=== PATIENT | female | born 1950 | race Caucasian/White ===

== ENCOUNTER 2021-09-28 08:50 | Emergency (ER) | payer MEDICARE, BC, SELFPAY ==
--- NOTE | ~2021-09-28 | CT_ITS ---
EXAMINATION: CT brain wo con DATE: 09/28/2021 10:02 INDICATION: Right-sided headache. Visual changes. Patient on blood thinners. TECHNIQUE: Computed tomography (CT) of the head was performed without intravenous contrast. The dose- length product was 605.33 mGy-cm. Automated exposure control and iterative reconstruction technique w ere employed. COMPARISON: None FINDINGS: No acute intracranial hemorrhage, infarction, mass or mass effect. No ventriculomegaly or m idline shift. There are scattered mild periventricular and subcortical white matter changes, most lik mouna related to small vessel ischemic disease (microangiopathy). There is intracranial atherosclerosis . Basilar cisterns are patent. There is mild mastoids are pneumatized. No depressed skull fractures. Mucosal thickening of the ethmoid sinuses. IMPRESSION: 1. No acute intracranial abnormality. Reviewed, dictated and finalized at location B.
[2021-09-28 08:57] VITALS: BP 144/63; PULSE 65; RESP 16; TEMP 35.8; O2SAT 97
--- NOTE | 2021-09-28 09:52 | ED.HA ---
HPI - Headache General Chief Complaint: Headache Stated Complaint: headache Time Seen by Provider: 09/28/21 09:20 Source: patient Mode of arrival: ambulatory Limitations: no limitations History of Present Illness HPI Narrative: This is a 71 year old female that presents to the ER for headache present since this morning. Reports she does have history of headaches, but this one is worse than usual for her. Reports a right sided headache that is a dull ache. Reports she started to feel like the pain was in her eye and looked in the mirror and noted bleeding in her eye. She has not taken anything for her headache. She did take her chronic medications this morning. Reports blurry vision in the right eye. She takes Eliquis daily for Afib. Denies fever, stiff neck, vomiting, numbness or weakness. Related Data Allergies Allergy/AdvReac Type Severity Reaction Status Date / Time codeine Allergy Unknown Verified 09/28/21 09:01 Sulfa (Sulfonamide Allergy Unknown Verified 09/28/21 09:00 Antibiotics) Review of Systems Review of Systems: CONSTITUTIONAL: Denies fever EYES: Reports redness. Denies visual changes GASTROINTESTINAL: Denies vomiting NEUROLOGIC: Reports headache. Denies numbness, or weakness. All systems reviewed & are unremarkable except as noted in HPI and below PMFSH Past Medical History Medical History (Updated 09/28/21 @ 12:41 by Prema Chawla PA-C) History of atrial fibrillation History of hypertension Social History Social History (Updated 09/28/21 @ 10:00 by Prema Chawla PA-C) Substance use: never Exam Narrative: GENERAL: Well-appearing, well-nourished, and in no acute distress. HEAD: Normocephalic, atraumatic. EYES: PERRLA and EOMI. Large subconjunctival hemorrhage of the right eye covering all of the sclera. Visual acuity right eye 20/30, left eye 20/25. Pressure right eye 18, left eye 16. Small (4mm) corneal abrasion noted medial to the pupil in the right eye ENT: Nares clear, no rhinorrhea or epistaxis. Mucous membranes moist. Oropharynx without tonsillar hypertrophy exudate or other lesions. Bilateral TMs pearly gutierrez non-bulging NECK: Supple. No adenopathy or masses. CHEST: Clear to auscultation. No respiratory distress. No wheezes rales or rhonchi HEART: Regular rate and rhythm. No murmur heard. Normal peripheral pulses. ABDOMEN: Soft, nontender, nondistended, normal active bowel sounds. EXTREMITIES: Normal range of motion. No edema. SKIN: Warm, dry, no rash. NEURO: No focal deficits. Alert and oriented x3. PSYCH: Normal mood and affect Course Consultations Consultation #1: Spoke with Dr. Alcala about patient and workup who will follow up in clinic on Friday. Will start patient on Moxifloxacin drops and artificial tears as needed for discomfort Date: 09/28/21 Time: 12:00 Vital Signs Vital signs: Vital Signs Temperature 96.4 F L 09/28/21 08:57 Pulse Rate 65 09/28/21 08:57 Respiratory Rate 16 09/28/21 08:57 Blood Pressure 144/63 H 09/28/21 08:57 Pulse Oximetry 97 09/28/21 08:57 Temperature 96.4 F L 09/28/21 08:57 Pulse Rate 60 09/28/21 11:28 Respiratory Rate 19 09/28/21 11:28 Blood Pressure 134/69 09/28/21 11:28 Pulse Oximetry 99 09/28/21 11:28 MDM - Headache MDM Narrative Medical decision making narrative: Patient presents to the emergency department for a headache today. She is afebrile and nontoxic-appearing. Her vitals are stable. She is neurologically intact. Reports relief of headache with Tylenol. Laboratory evaluation is without concerning findings. CT scan of the brain is without acute intracranial abnormality. Patient also reporting a subconjunctival hemorrhage today. No recent injury or trauma. It is a large subconjunctival hemorrhage, likely because she is on Eliquis for A. fib. No concerning visual changes. Pressures in her eyes are normal. She does appear to have a small corneal abrasion on exam. Spoke with ELZA Riddle ophthal
--- NOTE | 2021-09-28 09:56 | PC.NURSE ---
pt to CT at this time.
[2021-09-28 10:25] LABS: Basophils Percent Auto 0.3 % (0.2-1.2); Eosinophils Absolute Auto 0.3 K/mm3 (0-0.3); Eosinophils Percent Auto 2.6 % (0-4.4); Hematocrit 36.9 % (37.0-47.0); Immature Granulocyte Absolute 0.04 K/mm3 (0.00-0.031); Immature Granulocyte Percent A 0.4 % (0-0.5); Lymphocytes Absolute Auto 1.57 K/mm3 (0.9-3.2); Lymphocytes Percent Auto 15.5 % (18.3-44.2); Mean Corpuscular HGB Conc 32.5 g/dl (32-36); Mean Corpuscular Hemoglobin 29.4 pg (26-34); Mean Corpuscular Volume 90.4 fl (80-100); Mean Platelet Volume 10.2 fl (7.4-10.4); Monocytes Absolute Auto 0.5 K/mm3 (0.1-0.6); Monocytes Percent Auto 5.2 % (2.6-8.5); Neutrophils Absolute Auto 7.7 K/mm3 (1.3-6.7); Platelet Count Result 245 k/mm3 (150-375); Red Blood Count 4.08 M/mm3 (4.2-5.4); Red Cell Distribution Width 12.8 % (11.5-14.5); White Blood Count 10.1 K/mm3 (4.5-10.0)
[2021-09-28 10:35] LABS: Anion Gap 5 mmol/L (8-16); Blood Urea Nitrogen 18 mg/dL (7-17); Calcium 8.9 mg/dL (8.4-10.2); Carbon Dioxide 30 mmol/L (22-30); Chloride 101 mmol/L (98-107); Estimated CRCL calculation 56 ml/min; Estimated Glomerular Filt Rate > 60; Glucose 120 mg/dL (65-110); INR 1.2; Potassium 4.4 mmol/L (3.4-5.0); Prothrombin Time 14.6 Seconds (11.1-14.7); Sodium 136 mmol/L (137-145)
[2021-09-28 10:36] LABS: Partial Thromboplastin Time 31.5 SECONDS (22.3-36.8)
[2021-09-28 11:28] VITALS: BP 134/69; PULSE 60; RESP 19; O2SAT 99
== END 2021-09-28 12:58 | disposition home or self-care (01) ==
PROVIDERS: Physician Assistant; Emergency Provider Emergency Medicine; PCP Registered Nurse
DX: R51.9 Headache, unspecified (principal); H11.31 Conjunctival hemorrhage, right eye; I48.91 Unspecified atrial fibrillation; I10 Essential (primary) hypertension; Z79.01 Long term (current) use of anticoagulants
CPT/HCPCS: 36415; 70450; 80048; 85025; 85610; 85730; 96365; 99284; A9270; J0131

== ENCOUNTER 2024-08-29 09:35 | Emergency (ER) | payer MEDICARE, BC, SELFPAY ==
--- NOTE | ~2024-08-29 | XR_ITS ---
CHEST RADIOGRAPH, PA AND LATERAL CLINICAL HISTORY: cough, wheezing, shortness of breath . COMPARISON: None available TECHNIQUE: PA and lateral views of the chest. FINDINGS The cardiomediastinal silhouette is unremarkable. Elevation of the right hemidiaphragm with adjacent compressive atelectasis. Peribronchial thickening is also noted. Remainder of the lungs are clear. IMPRESSION: Peribronchial thickening, without focal infiltrate or effusion. Reviewed, dictated and finalized at location [facility]. [facility]
--- OUTSIDE RECORDS SUMMARY | 2024-08-29 09:37 | XMS_ITS | Clinical Summary ---
Author Organization [facility] Address [address] [place] [address] Care Team Providers Care Sql Ssrs Developer Name Role Phone Modesta Kraft Primary Care Provider [phone] Allergies Active Allergy Reactions Criticality Noted Date Comments Codeine Nausea and Vomiting 04/05/2021 Sulfa Antibiotics Unknown 04/05/2021 Pt cant remember. Medications albuterol sulfate HFA 108 (90 Base) MCG/ACT inhalerIndication s:Acute cough,Bronchitis Inhale 2 puffs into the lungs every 6 (six) hours as needed for Wheezing. 8.5 g 2 09/30/19 24 Active spironolactone (ALDACTONE) 25 MG tabletIndications :Primary hypertension TAKE 1 TABLET(25 MG) BY MOUTH DAILY 90 tablet 3 12/10/19 24 Active amLODIPine (NORVASC) 5 MG tabletIndications :Primary hypertension TAKE 1 TABLET(5 MG) BY MOUTH DAILY 90 tablet 3 12/10/19 24 Active metoprolol succinate ER (TOPROL-XL) 100 MG 24 hr tabletIndications :Primary hypertension,Paro xysmal atrial fibrillation (CMS/HCC HHS/HCC) TAKE 1 TABLET(100 MG) BY MOUTH DAILY 90 tablet 3 12/10/19 24 Active glimepiride (AMARYL) 1 MG tabletIndications :Type 2 diabetes mellitus with diabetic polyneuropathy, without long-term current use of insulin ([facility] HHS/HCC) TAKE 1 TABLET(1 MG) BY MOUTH EVERY MORNING BEFORE BREAKFAST 90 tablet 3 12/10/19 24 Active gabapentin (NEURONTIN) 100 MG capsuleIndication s:Diabetic peripheral neuropathy ([facility] HHS/HCC) take 2 capsules by mouth daily 180 capsule 3 12/10/19 24 Active atorvastatin (LIPITOR) 20 MG tabletIndications :Mixed hyperlipidemia TAKE 1 TABLET(20 MG) BY MOUTH EVERY NIGHT AT BEDTIME 90 tablet 3 12/10/19 24 Active traZODone (DESYREL) 50 MG tabletIndications :Primary insomnia TAKE 1/2 TO 1 TABLET BY MOUTH EVERY NIGHT 30 tablet 1 04/13/20 24 Active FLUoxetine (PROZAC) 40 MG capsuleIndication s:Moderate episode of recurrent major depressive disorder ([facility]) TAKE 1 CAPSULE(40 MG) BY MOUTH DAILY 90 capsule 1 06/28/20 24 Active ELIQUIS 5 MG tabletIndications :Paroxysmal atrial fibrillation ([facility]) TAKE 1 TABLET(5 MG) BY MOUTH TWICE DAILY 180 tablet 1 07/01/20 24 Active lisinopril (PRINIVIL) 40 MG tabletIndications :Primary hypertension TAKE 1 TABLET(40 MG) BY MOUTH DAILY 90 tablet 3 07/01/20 24 Active metFORMIN ER (GLUCOPHAGE-XR) 500 MG 24 hr tabletIndications :Type 2 diabetes mellitus with diabetic polyneuropathy, without long-term current use of insulin ([facility] HHS/HCC) TAKE 2 TABLETS BY MOUTH EVERY NIGHT 60 tablet 08/09/19 25 Active metFORMIN ER (GLUCOPHAGE-XR) 500 MG 24 hr tabletIndications :Type 2 diabetes mellitus with diabetic polyneuropathy, without long-term current use of insulin ([facility] HHS/HCC) TAKE 2 TABLETS BY MOUTH EVERY NIGHT 60 tablet 07/12/20 24 025 Discontinued benzonatate (TESSALON PERLES) 100 MG capsuleIndication s:Acute cough Take 1 capsule (100 mg total) by mouth 3 (three) times daily as needed for Cough. 20 capsule 08/19/19 25 025 Active Problems Problem Noted Date Diagnosed Date Moderate episode of recurren t major depressive disorder ([facility] HHS/HCC) 08/19/2024 Screening for colon cancer 09/10/2022 Overview (09/10/2022): Added automatically from request for surgery [id number] Hx of colonic polyps 09/10/2022 Overview (09/10/2022): Added automatically from request for surgery [id number] Morbid (severe) obesity due to excess calories ([facility]) 05/02/2022 Postmenopausal 04/09/2021 Primary hypertension 04/05/2021 Mixed hyperlipidemia 04/05/2021 Paroxysmal atrial fibrillation ([facility]) 04/05/2021 Diabetic peripheral neuropathy ([facility]) 04/05/2021 Type 2 diabetes mellitus wit h neurologic complication, without long-term current use of insulin ([facility]) 04/05/2021 Episode of recurrent major depressive disorder 0 04/05/2021 Gastroesophageal reflux disease without esophagi tis 04/05/2021 Obstructive sleep apnea 04/05/2021 Atrial fibrillation ([facility]) Encounters Date Type Department Care Team Description 08/25/2024 9:00 AM CAR JOCKEY Laboratory Only [facility] Family & Internal Medicine [address] [address] Modesta Kraft APNP 08/25/2024 - 08/25/2024 11:59 PM CAR JOCKEY Hospital Encounter [facility] [address] [place] [address] Modesta Kraft APPAWAN Discharge Disposition: Home or Self Care (Routine Discharge) 08/25/2024 Travel 08/19/2024 2:20 PM CAR JOCKEY Office Visit [facility] Family & Internal Medicine [address] [address] Modesta Kraft APNP Diabetes; Cough (Onset Friday) 08/19/2024 Travel 06/29/2024 11:00 AM CAR JOCKEY Office Visit [facility] [address] [address] Ben Sumner MD Atrial Fibrillation (annual) 06/29/2024 Travel from Last 3 Months Immunizations Name Administration Dates Next Due Abrysvo Respiratory Syncytia l Virus (RSV) 0.5 mL, PF 05/20/2023 Fluzone High Dose (IIV, trivalent, 0.5mL) 2023 Fluzone High Dose - >Age 65 (Prefilled Syringe) 05/20/2023,05/02/2022,05/15/2021 PFIZER COVID-19 (ORIGINAL FO RMULATION, PURPLE CAP) mRNA, LNP-S, PF, 30 MCG/0.3 ML DOSE 05/15/2021,09/26/2020,09/05/2020 Pneumococcal (Pneumovax 23) 01/23/2022 Shingrix 08/09/2022,06/04/2022 Tdap (Adacel) 04/05/2021 Tdap (Boostrix) 10/03/2023 Family History Medical History Relation Comments Diabetes Daughter Diverticulitis Daughter Cancer Father lung, smoker Hypertension Father Diabetes Maternal Grandfather Hypertension Maternal Grandfather Diabetes Mother Hypertension Mother Breast Cancer Paternal Aunt Diverticulitis Son 1 Relation Status Comments Brother 1 Alive Brother 2 in an accid ent Daughter Alive kidney issue Father lung cancer Maternal Grandfather Maternal Grandmother issues with colon Mother Paternal Aunt Paternal Grandfather TB Paternal Grandmother Son 1 Alive aids. HIV positi ve Son 2 Alive seizure Social History Tobacco Use Types Packs/Day Years Used Date Smoking Tobacco: Never Smokeless Tobacco: Never Tobacco Cessation:Counseling Given: No Alcohol Use Standard Drinks/Week Comments Never 0 (1 standard drink = 0.6 oz pur e alcohol) PHQ-2 Answer Date Recorded Patient Health Questionnaire-2 Score 0 08/19/2024 Comments No Sex and Gender Information Value Date Recorded Sex Assigned at Not on file Legal Sex Female 2:50 PM CDT Gender Identity Female 08/28/2021 11:56 AM CAR JOCKEY Sexual Orientation Straight 08/28/2021 11 :56 AM CAR JOCKEY Last Filed Vital Signs Vital Sign Reading Time Taken Comments Blood Pressure 122/68 08/19/2024 2:31 PM CAR JOCKEY Pulse 66 08/19/2024 2:31 PM CAR JOCKEY Temperature 36.2 C (97.2 F) 08/19/2024 2:31 PM CAR JOCKEY Respiratory Rate 16 08/19/2024 2:31 PM CAR JOCKEY Oxygen Saturation 98% 08/19/2024 2:31 PM CAR JOCKEY Inhaled Oxygen Concentration - - Weight 113 kg (249 lb 3.2 oz) 08/19/2024 2:31 PM CAR JOCKEY Height 165.1 cm (5' 5 ) 08/19/2024 2:31 PM CAR JOCKEY Body Mass Index 41.47 08/19/2024 2:31 PM CAR JOCKEY Plan of Treatment Upcoming Encounters Date Type Department Care Team (Late st Contact Info) Description 09/23/2024 9:30 AM CDT Appointment [facility] Mammography [address] [place] [address] Modesta Kraft APNP [address] [place] [address] 09/23/2024 10:00 AM CDT Appointment [facility] Diagnostic Imaging [address] [place] [address] Modesta Kraft APNP [address] [place] [address] 02/16/2025 11:00 AM CDT Office Visit [facility] Family & Internal Medicine - [place] [address] [place] [address] Modesta Kraft APNP [address] [place] [address] 06/30/2025 11:00 AM CAR JOCKEY Office Visit [facility] [address] [place], [place] [address] Lennie Joyner PA [address] [facility] [address] [place], [place] [address] Health Maintenance Due Date Last Done Comments Diabetes: Retinopathy Eye Exam 1966 Annual Medicare Wellness Visit 2013 Pneumococcal Vaccine: 65+ Years (2 of 2 - PCV) 10/17/2024 01/23/2022 Postponed from 01/23/2023 (Patient Refused) Hemoglobin A1C 02/16/2025 08/19/2024, 0611/2023, 09/18/2022, Additional history exists Kidney Health Evaluation 08/25/2025 08/25/2024 Lipid Panel 08/25/2025 08/25/2024, 04/05/2021 DTaP, Tdap and Td Vaccines (3 - Td or Tdap) 10/02/2033 10/03/2023, 04/05/2021 Dexa Scan (General) Completed 04/17/2021 Zoster Vaccines Completed 08/09/2022, 06/04/2022 Colorectal Cancer Screening Colonoscopy (10 Years) Discontinued 09/20/2022 RSV Immunization or 60+ Years Completed 05/20/2023 COVID-19 Vaccine Completed 04/24/2024, 01/2023, 05/15/2021, Additional history exists Influenza Adult Completed 04/24/2024, 01/2023, 05/02/2022, Additional history exists PHQ-2 (Physician [place]) Completed 08/19/2024 Hepatitis C Completed 08/25/2024 Meningococcal B Vaccine Aged Out No l onger eligible based on patient's age to complete this topic Meningococcal Vaccine Aged Out No victorina brandie eligible based on patient's age to complete this topic RSV Immunizations Under 20 Months Aged Out No longer eligible based on patient's age to complete this topic Procedures Procedure Name Priority Date/Time Associated Diagnosis Comments COLLECTION VENOUS BLOOD VENIPUNCTURE Routine 08/25/2024 9:00 AM CAR JOCKEY Mixed hyperlipidemia Type 2 diabetes mellitus with diabetic polyneuropathy, without long-term current use of insulin (CMS/HCC HHS/HCC) Paroxysmal atrial fibrillation (CMS/HCC HHS/HCC) Need for hepatitis C screening test HEPATITIS C ANTIBODY Routine 08/25/2024 9:00 AM CAR JOCKEY Need for hepatitis C screening test CBC W/DIFF AUTOMATED Routine 08/25/2024 9:00 AM CAR JOCKEY Paroxysmal atrial fibrillation (CMS/HCC HHS/HCC) LIPID PANEL Routine 08/25/2024 9:00 AM CAR JOCKEY Mixed hyperlipidemia TSH W/REFLEX Routine 08/25/2024 9:00 AM CAR JOCKEY Mixed hyperlipidemia URIC ACID BLOOD Routine 08/25/2024 9:00 AM CAR JOCKEY Type 2 diabetes mellitus with diabetic polyneuropathy, without long-term current use of insulin ([facility]) COMPREHENSIVE METABOLIC PANEL Routine 08/25/2024 9:00 AM CAR JOCKEY Type 2 diabetes mellitus with diabetic polyneuropathy, without long-term current use of insulin ([facility]) ALBUMIN URINE RANDOM W/CREATININE Routine 08/25/2024 9:00 AM CAR JOCKEY Type 2 diabetes mellitus with diabetic polyneuropathy, without long-term current use of insulin ([facility]) CK (CPK) Routine 08/25/2024 9:00 AM CAR JOCKEY Mixed hyperlipidemia COLLECT.CAPILLARY (FNGR,HEEL,EAR) Routine 08/19/2024 2:17 PM CAR JOCKEY Type 2 diabetes mellitus with diabetic polyneuropathy, without long-term current use of insulin ([facility]) CORONAVIRUS (COVID-19) INFLUENZA A & B ANTIGEN IA PANEL Routine 08/19/2024 Acute cough Intractable headache, unspecified chronicity pattern, unspecified headache type HEMOGLOBIN, GLYCOSYLATED Routine 08/19/2024 Type 2 diabetes mellitus with diabetic polyneuropathy, without long-term current use of insulin ([facility]) ELECTROCARDIOGRAM (NON MIDMARK ACQUIRED) Routine 06/29/2024 11:09 AM CAR JOCKEY Paroxysmal atrial fibrillation ([facility]) BONE DENSITY/DEXA Routine 04/17/2021 8:3 2 AM CDT Postmenopausal from Last 3 Months or Most Recently Relevant to Health Maintenance Results * TSH W/REFLEX (08/25/2024 9:00 AM CAR JOCKEY) TSH 1.136 0.358 - 3.740 uIU/ML 08/25/2024 3:58 PM CAR JOCKEY [facility] 08/25/2024 9:00 AM CAR JOCKEY us [facility] Final Resul t Performing Organization Address City/[facility]/ZIP Co de Phone Number [facility] [address] [place] [address], * (ABNORMAL) ALBUMIN URINE RANDOM W/CREATININE (08/25/2024 9:00 AM CAR JOCKEY) MICROALBUMIN (U) 63.9(H) <20 MG/L 08/25/19 3:25 PM CAR JOCKEY [facility] CREATININE RANDOM (U) 184.4 MG/DL 08/25/2024 3:25 PM CAR JOCKEY [facility] ALBUMIN/CREAT RATIO 34.7(H) <30 MG/G 08/25/2024 3:25 PM CAR JOCKEY [facility] URINE SPECIMEN / Unknown 08/25/2024 9:00 AM CAR JOCKEY us Modesta GALAVIZ URINE ORDERABLES Final Resu lt Performing Organization Address [facility]/ZIP Co de Phone Number [facility] [address] [place] [address], * (ABNORMAL) COMPREHENSIVE METABOLIC PANEL (08/25/2024 9:00 AM CAR JOCKEY) SODIUM S/P/B 133(L) 136 - 145 MMOL/L 08/25/2024 3:58 PM CAR JOCKEY [facility] POTASSIUM S/P/B 5.3(H) 3.5 - 5.1 MMOL/L 08/25/2024 3:58 PM CAR JOCKEY [facility] CHLORIDE S/P/B 97(L) 98 - 107 MMOL/L 08/25/2024 3:58 PM CAR JOCKEY [facility] CO2 30.6 21 - 32 MMOL/L 08/25/2024 3:58 PM [facility] GLUCOSE 108(H) 70 - 99 MG/DL 08/25/2024 3:58 PM [facility] BUN 25(H) 7 - 18 MG/DL 08/25/2024 3:58 PM [facility] CREATININE S/P/B 1.07(H) 0.55 - 1.02 MG/DL 08/25/2024 3:58 PM [facility] CALCIUM S/P/B 9.1 8.4 - 10.5 MG/DL 08/25/2024 3:58 PM [facility] BILIRUBIN TOTAL S/P/B 0.4 0.2 - 1.0 MG/DL 08/25/2024 3:58 PM [facility] ALKALINE PHOSPHATASE S/P/B 71 55 - 142 U/L 08/25/2024 3:58 PM [facility] AST 12(L) 15 - 37 U/L 08/25/2024 3:58 PM [facility] ALT 21 14 - 59 U/L 08/25/2024 3:58 PM [facility] TOTAL PROTEIN S/P/B 6.7 6.4 - 8.2 G/DL 08/25/2024 3:58 PM [facility] ALBUMIN S/P/B 3.8 3.4 - 5.0 G/DL 08/25/2024 3:58 PM [facility] ANION GAP 5.4 5 - 15 MMOL/L 08/25/2024 3:58 PM [facility] Comment:REFERENCE RANGE NOT ESTABLISHED OSMOLALITY (CALC) 281 MOSM/KG 025 3:58 PM [facility] Comment:REFERENCE RANGE NOT ESTABLISHED GFR ESTIMATE 54(L) >90 ML/MIN/1. 73 M2 08/25/2024 3:58 PM [facility] GFR NOTES GFR REFERENCE S: 08/25/2024 3:58 PM CAR JOCKEY [facility] Comment: THE ESTIMATED GFR IS CALCULATED USING THE 2020 CKD-EPI EQUATION. THE FOLLOWING CATEGORIES FOR GRADING RENAL FUNCTION ARE RECOMMENDED BY THE INTERNATIONAL SOCIETY OF NEPHROLOGY (KDIGO 2012 CLINICAL PRACTICE GUIDELINE). G1,NORMAL OR HIGH: >89 ml/min/1.73 m2 G2,MILDLY DECREASED: 60-89 ml/min/1.73 m2 G3A,MILDLY TO MODERATELY DECREASED: 45-59 ml/min/1.73 m2 G3B,MODERATELY TO SEVERELY DECREASED: 30-44 ml/min/1.73 m2 G4,SEVERELY DECREASED: 15-29 ml/min/1.73 m2 G5,KIDNEY FAILURE: <15 ml/min/1.73 m2 08/25/2024 9:00 AM CAR JOCKEY us [facility] Final Resul t [facility] [address] [place] [address], * (ABNORMAL) LIPID PANEL (08/25/2024 9:00 AM CAR JOCKEY) CHOLESTEROL 149 <200 MG/DL 08/25/2024 3:58 PM [facility] TRIGLYCERIDES 159(H) <150 MG/DL 08/25/2024 3:58 PM [facility] HDL 54 >40 MG/DL 08/25/2024 3:58 PM [facility] LDL-C 63 <100 MG/DL 08/25/2024 3:58 PM [facility] VLDL CALCULATION 32(H) 5 - 28 MG/DL 08/25/2024 3:58 PM [facility] CHOL/HDL RATIO 2.8 0.0 - 4.0 08/25/2024 3:58 PM [facility] LDL/HDL 1.2 0.41 - 2.13 08/25/2024 3:58 PM CAR JOCKEY [facility] NON HDL CHOLESTEROL 95 <140 MG/DL 08/25/2024 3:58 PM CAR JOCKEY [facility] 08/25/2024 9:00 AM CAR JOCKEY [facility] Final Resul t Performing Organization Address City/[facility]/ZIP Co de Phone Number [facility] [address] [place] [address], [place] [phone] * HEPATITIS C AB ([facility] ONLY) (08/25/2024 9:00 AM CAR JOCKEY) Pathologist [facility] HEPATITIS C AB NON-REACTI VE NON-REACT BUSHRA 08/25/2024 10:06 PM CAR JOCKEY [facility] Comment: ANTIBODIES TO HCV NOT DETECTED. DOES NOT EXCLUDE THE POSSIBILITY OF EXPOSURE TO HCV. 08/25/2024 9:00 AM CAR JOCKEY [facility] Final Resul t Performing Organization Address City/[facility] Co de Phone Number [facility] [address] [place] [address], [place] [phone] * (ABNORMAL) CBC W/DIFF AUTOMATED (08/25/2024 9:00 AM CAR JOCKEY) Pathologist [facility] WBC 9.91 4.00 - 10.80 x10'3/uL 08/25/2024 3:03 PM CAR JOCKEY [facility] RBC 4.24 4.10 - 5.40 x10'6/uL 08/25/2024 3:03 PM CAR JOCKEY [facility] HGB 12.7 12.0 - 16.0 G/DL 08/25/2024 3:03 PM CAR JOCKEY [facility] HCT 38.7 36.0 - 47.0 % 08/25/2024 3:03 PM [facility] MCV 91.3 78.0 - 100.0 FL 08/25/2024 3:03 PM [facility] MCH 30.0 27.0 - 31.0 PG 08/25/2024 3:03 PM [facility] MCHC 32.8(L) 33.0 - 36.0 G/DL 08/25/2024 3:03 PM [facility] RDW 12.2 11.5 - 14.5 % 08/25/2024 3:03 PM [facility] PLT 292 150 - 350 x10'3/uL 08/25/2024 3:03 PM [facility] MPV 10.0 7.4 - 10.4 FL 08/25/2024 3:03 PM [facility] DIFFERENTIAL TYPE AUTOMATED DIFFERENTIAL 08/25/2024 3:03 PM [facility] NEUTROPHILS % 74.4 % 08/25/2024 3:03 PM [facility] LYMPHOCYTES % 17.6 % 08/25/2024 3:03 PM [facility] MONOCYTES % 5.0 % 08/25/2024 3:03 PM [facility] EOSINOPHILS % 2.7 % 08/25/2024 3:03 PM [facility] BASOPHILS % 0.1 % 08/25/2024 3:03 PM [facility] IMMATURE GRANS % 0.2 % 08/25/2024 3:03 PM [facility] ABS. NEUTROPHILS 7.37 1.60 - 8.30 x10'3/uL 08/25/2024 3:03 PM [facility] ABS. LYMPHOCYTES 1.74 0.80 - 4.70 x10'3/uL 08/25/2024 3:03 PM [facility] ABS. MONOCYTES 0.50 0.00 - 1.50 x10'3/uL 08/25/2024 3:03 PM CAR JOCKEY [facility] ABS. EOSINOPHILS 0.27 0.00 - 0.40 x10'3/uL 08/25/2024 3:03 PM CAR JOCKEY [facility] ABS. BASOPHILS 0.01 0.00 - 0.20 x10'3/uL 08/25/2024 3:03 PM CAR JOCKEY [facility] ABS. IMMATURE GRANULOCYTES 0.02 0.00 - 0.03 x10'3/uL 08/25/2024 3:03 PM CAR JOCKEY [facility] 08/25/2024 9:00 AM CAR JOCKEY [facility] Final Resul t Performing Organization Address City/[facility]/ZIP Co de Phone Number [facility] [address] [place] [address], * CK (CPK) (08/25/2024 9:00 AM CAR JOCKEY) CPK 53 26 - 192 U/L 08/25/2024 5:45 PM CAR JOCKEY [facility] 08/25/2024 9:00 AM CAR JOCKEY [facility] Final Resul t [facility] [address] [place] [address], [place] [phone] * URIC ACID BLOOD (08/25/2024 9:00 AM CAR JOCKEY) URIC ACID 6.0 2.6 - 6.0 MG/DL 08/25/2024 5:06 PM CAR JOCKEY [facility] 08/25/2024 9:00 AM CAR JOCKEY [facility] Final Resul t Performing Organization Address City/[facility] Co de Phone Number [facility] [address] [place] [address], * CORONAVIRUS (COVID-19) INFLUENZA A & B ANTIGEN IA PANEL (08/19/2024) CORONAVIRUS ANTIGEN IA NEGATIVE NEGATIVE [facility] INFLUENZA A NEGATIVE NEGATIVE [facility] INFLUENZA B NEGATIVE NEGATIVE [facility] Internal Control: VALID VALID [facility] NASAL STRUCTURE / Unknown 08/19/2024 Modesta GALAVIZ [facility] - [facility] Final Result Performing Organization Address [facility] [place] [address], [place] * HEMOGLOBIN, GLYCOSYLATED (08/19/2024) HGB A1C 6.4 % [facility] 08/19/2024 [facility] Final Resul t Performing Organization Address [facility] Co de Phone Number [address] [address], [place] * ELECTROCARDIOGRAM (06/29/2024 11:09 AM CAR JOCKEY) 06/29/2024 11:0 9 AM CAR JOCKEY Narrative [facility] - 07/02/2024 11:51 PM CAR JOCKEY [facility] Test Date: 2024-06-29 Pat Name: VERONICA MAHMOOD Department: 112 Room: Gender: Female Academic Affairs Dean: : 1950 Requested By: BEN SUMNER Order Number: [id number] Reading MD: Ben Sumner Measurements Intervals Thorp Rate: 63 P: 90 TX: 215 QRS: 28 QRSD: 93 T: 53 QT: 404 QTc: 415 Interpretive Statements 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 JOCKEY Procedure Note Ben Sumner MD - 07/02/2024 [facility] Test Date: 2024-06-29 Pat Name: VERONICA MAHMOOD Department: 112 Room: Gender: Female Academic Affairs Dean: : 1950 Requested By: BEN SUMNER Order Number: [id number] Reading MD: Ben Sumner Measurements Intervals Thorp Rate: 63 P: 90 TX: 215 QRS: 28 QRSD: 93 T: 53 QT: 404 QTc: 415 Interpretive Statements 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 Referred By: MODESTA KRAFT Interpreted By: German Guevara MD, 04/17/2021 9:17 AM Narrative 04/17/2021 9:18 AM CDT EXAMINATION: BONE DENSITY EVALUATION EXAM DATE: 04/17/2021 8:04 AM HISTORY: The patient is referred for osteoporosis screening. TECHNIQUE: Evaluation of bone density was performed utilizing the Hologic bone densitometer. The results of the study are expressed as bone mineral density (BMD) in grams per centimeter squared (g/cm2). GENERAL OBSERVATIONS: The young adult T score and the age-matched Z score refer to standard deviations (SD) above or below normal. The World Health Organization has established that osteoporosis occurs at -2.5 SD below peak bone mass. Peak bone mass usually occurs at about 30 years of age in the axial skeleton (spine) and at about 22 years of age in the femoral neck. Osteopenia (low bone mass) occurs at -1 SD to -2.5 SD below peak bone mass. Low bone mass is an accurate predictor of fracture risk. A program of good bone health often includes regular weightbearing exercise, such as 30 minutes of walking 3 times a week, and may include calcium supplementation and vitamin D supplementation. FINDINGS: The images of the lumbar spine and of the hips are technically adequate. Measurements in the lumbar spine (L1-L4) are as follows: BMD (g/cm2): 1.123 T score: 0.7 Z score: 3.0 Measurements in the right femoral neck are as follows: BMD (g/cm2): 0.848 T score: 0.0 Z score: 2.0 Measurements in the left femoral neck are as follows: BMD (g/cm2): 0.850 T score: 0.0 Z score: 2.0 The patient's 10 year probability of a major osteoporotic fracture is 6.8%, of a hip fracture 0.5%. Procedure Note German Guevara MD - 04/17/2021 EXAMINATION: BONE DENSITY EVALUATION EXAM DATE: 04/17/2021 8:04 AM HISTORY: The patient is referred for osteoporosis screening. TECHNIQUE: Evaluation of bone density was performed utilizing the [employer] densitometer. The results of the study are expressed as bone mineraldensity (BMD) in grams per centimeter squared (g/cm2). GENERAL OBSERVATIONS: The young adult T score and the age-matched Z score refer to standarddeviations (SD) above or below normal. The World Health Organization has established that osteoporosis occurs at-2.5 SD below peak bone mass. Peak bone mass usually occurs at about 30years of age in the axial skeleton (spine) and at about 22 years of age inthe femoral neck. Osteopenia (low bone mass) occurs at -1 SD to -2.5 SDbelow peak bone mass. Low bone mass is an accurate predictor of fracturerisk. A program of good bone health often includes regular weightbearingexercise, such as 30 minutes of walking 3 times a week, and may includecalcium supplementation and vitamin D supplementation. FINDINGS: The images of the lumbar spine and of the hips are technically adequate. Measurements in the lumbar spine (L1-L4) are as follows: BMD (g/cm2): 1.123 T score: 0.7 Z score: 3.0 Measurements in the right femoral neck are as follows: BMD (g/cm2): 0.848 T score: 0.0 Z score: 2.0 Measurements in the left femoral neck are as follows: BMD (g/cm2): 0.850 T score: 0.0 Z score: 2.0 The patient's 10 year probability of a major osteoporotic fracture is6.8%, of a hip fracture 0.5%. IMPRESSION: With evaluation of the lumbar spine and of the hips, thisstudy shows no evidence of osteopenia or of osteoporosis. Referred By: MODESTA KRAFT Interpreted By: German Guevara MD, 04/17/2021 9:17 AM Modesta Kraft APNP DEXA Final Resul t from Last 3 Months or Most Recently Relevant to Health Maintenance Insurance MEDICARE [facility] Care Teams Sql Ssrs Developer Relationship Specialty Start Date End Date Modesta Kraft APNP [facility] [place] [address] PCP - General NURSE PRACTITIONER 04/05/21
[2024-08-29 09:41] VITALS: BP 125/59; PULSE 73; RESP 18; TEMP 36.7; O2SAT 96
--- NOTE | 2024-08-29 10:19 | ED.URI ---
HPI - URI/Sore Throat General Chief Complaint: Upper Respiratory Infection Stated Complaint: COUGH Time Seen by Provider: 08/29/24 09:39 Source: patient and family Mode of arrival: ambulatory Limitations: no limitations History of Present Illness HPI Narrative: 74-year-old female presents to [facility] with complaints of nonproductive cough for the past 2 weeks. Patient were that she also has since started with shortening of breath and wheezing. Patient is a nonsmoker. Patient reports that sharp primary care provider on August 19, had negative COVID and influenza testing at that time and was prescribed Tessalon Perles. Patient reports history of pneumonia and bronchitis. Patient denies nausea, vomiting, diarrhea. Patient has been taking [id number] Mucinex, DayQuil and NyQuil with minimal relief. MD elicited complaint: cough Onset (ago): week(s) (2) Consistency: intermittent Description of mucous: clear Able to tolerate fluids by mouth: Yes Exacerbating factors: nothing Relieving factors: nothing Treatments prior to arrival: cold medicine Related Data Home Medications ?Medication ?Instructions ?Recorded ?Confirmed ?Last Taken ?Type albuterol sulfate 90 mcg/actuation inhalation 08/29/24 Unknown History aerosol inhaler amlodipine 5 mg tablet mg 08/29/24 Unknown History apixaban 5 mg tablet (Eliquis) mg 08/29/24 Unknown History atorvastatin 20 mg tablet mg 08/29/24 Unknown History benzonatate 100 mg capsule mg PO 08/29/24 Unknown History fluoxetine 40 mg capsule mg 08/29/24 Unknown History gabapentin 100 mg capsule mg 08/29/24 Unknown History glimepiride 1 mg tablet mg 08/29/24 Unknown History lisinopril 40 mg tablet mg 08/29/24 Unknown History metformin 500 mg tablet,extended mg PO 08/29/24 Unknown History release 24 hr metoprolol succinate 100 mg mg PO 08/29/24 Unknown History tablet,extended release 24 hr spironolactone 25 mg tablet mg 08/29/24 Unknown History trazodone 50 mg tablet mg 08/29/24 Unknown History Allergies Allergy/AdvReac Type Severity Reaction Status Date / Time Sulfa (Sulfonamide Allergy Unknown Verified 08/29/24 09:55 Antibiotics) codeine AdvReac Intermediate Vomiting Verified 08/29/24 09:55 Review of Systems Constitutional: Constitutional: Denies chills, Denies fatigue, Denies fever(s) and Denies weakness ENT: Denies nasal congestion and Denies sore throat Respiratory: Respiratory: Denies chest congestion, Reports cough, Reports dyspnea and Reports wheezing Gastrointestinal: Gastrointestinal: Denies diarrhea, Denies nausea and Denies vomiting Integumentary/Breasts: Skin/Breast: Denies rash Neurologic: Denies headache(s) and Denies focal weakness PMFSH Past Medical History Medical History History of atrial fibrillation History of hypertension Social History Social History Substance use: never Exam Const: General: healthy appearing and no acute distress Nutritional Appearance: well nourished Orientation/consciousness: patient oriented x3 Limitations: no limitations HENMT: Head: normal to inspection Ears: external ears normal Face/Nose/Sinus: Normal external nose present and Normal nares present Face and sinus: normal facial exam Mouth: Yes Normal oral and palatal mucosa present and Yes lip normal Throat: posterior oropharynx normal and uvula midline Eyes: Conjunctivae: conjunctivae normal Neck: Neck: normal visual inspection Resp: Effort & Inspection: normal respiratory effort and not labored Auscultation: clear to auscultation bilaterally, no crackles, no rales, no rhonchi, no wheezes, breath sounds present and lung sounds not diminished Cardio: Rate: regular rate Rhythm: regular rhythm Heart sounds: no murmurs Skin: General skin exam: normal color Rashes: no rashes Neuro: General: patient oriented x3 Speech: normal speech Extrem: General: normal to inspection Psych: Affect: normal affect Attitude: cooperative Course Course Level of Care: Express Care Visit Vital Signs Vital signs: Vital Signs Temperature 36.7 C 08/29/24 09:41 Pulse Rate 73 08/29/24 09:41 Respiratory Rate 18 08/29/24 09:41 Blood Pressure 125/59 L 08/29/24 09:41 Pulse Oximetry 96 08/29/24 09:41 Oxygen Delivery Room Air 08/29/24 09:41 Temperature 36.7 C 08/29/24 09:41 Pulse Rate 73 08/29/24 09:41 Respiratory Rate 18 08/29/24 09:41 Blood Pressure 125/59 L 08/29/24 09:41 Pulse Oximetry 96 08/29/24 09:41 Oxygen Delivery Room Air 08/29/24 09:41 MDM - URI/Sore Throat MDM Narrative Medical decision making narrative: Discussed chest x-ray results with patient. Patient will not be prescribed steroids at this time as she takes Eliquis daily. Will prescribe patient an inhaler to use as needed as well as antibiotic as symptoms have been present for nearly 2 weeks. Differential Diagnosis Differential diagnosis: Likely sinusitis, viral infection and bronchitis Imaging Data Radiologist's impression: [address] [address] XRay Report Signed Patient: Veronica Luque : 1950 MR#: [id number] Age: 74 Acct:[id number] Loc: [facility] ADM Date: 08/29/[address]: Ordering Physician: Freya Morales APRN Date of Service: 08/29/24 Procedure(s): XR chest 2V Accession Number(s): [id number] cc: Freya Morales APRN; Abena, Katie JERRY~ CHEST RADIOGRAPH, PA AND LATERAL CLINICAL HISTORY: cough, wheezing, shortness of breath . COMPARISON: None available TECHNIQUE: PA and lateral views of the chest. FINDINGS The cardiomediastinal silhouette is unremarkable. Elevation of the right hemidiaphragm with adjacent compressive atelectasis. Peribronchial thickening is also noted. Remainder of the lungs are clear. IMPRESSION: Peribronchial thickening, without focal infiltrate or effusion. Reviewed, dictated and finalized at location [employer]. [employer]BER Please be advised this is a medical document. It is intended for deer-ms-nhow communication. It is written in medical language and may contain unfamiliar abbreviations or verbiage. Medical documents are intended to carry relevant information, facts as evident, and the clinical opinion of the practitioner at the time of the encounter. This report may have been done utilizing a voice recognition system. Attempts have been made to correct errors. However, there may be uncorrected grammatical, spelling, and recognition errors present. The file time of this note does not necessarily represent the time of service. Dictated By: Corinne Gilbert MD 08/29/24 1036 Signed By: <Electronically signed by Corinne Gilbert MD in OV> 08/29/24 1037 Critical Care Time Critical Care Time Critical Care Time: No Discharge Plan Discharge Clinical Impression: Bronchitis Upper respiratory infection Qualifiers: URI type: unspecified URI Qualified Code(s): J06.9 - Acute upper respiratory infection, unspecified Patient Disposition: Home, Self-Care Condition: Stable Instructions: Antibiotic Form, Upper Respiratory Infection (ED), Acute Bronchitis (ED) Additional Instructions: Use inhaler as needed Take antibiotics as prescribed Follow-up with primary care provider to discuss possible steroids if symptoms not improve; no steroids were prescribed at this time due to daily Eliquis use Proceed to the emergency room if symptoms worsen Patient Language: Cambodian Prescriptions: New Proair Digihaler 90 mcg/actuation aero powdr breath act w/sensor 1 inh inhalation Q4-6H PRN (Reason: shortness of breath or wheezing) Qty: 1 0RF azithromycin [Zithromax Z-David] 250 mg tablet See Rx Instructions .ROUTE .COMPLEX Qty: 6 0RF Rx Instructions: For 250 mg dose pack: take 500 mg today (day 1), then 250 mg for 4 days (days 2-5) benzonatate 100 mg capsule 100 mg PO TID PRN (Reason: cough) Qty: 20 0RF No Action fluoxetine 40 mg capsule atorvastatin 20 mg tablet trazodone 50 mg tablet metoprolol succinate 100 mg tablet extended release 24 hr PO amlodipine 5 mg tablet spironolactone 25 mg tablet glimepiride 1 mg tablet benzonatate 100 mg capsule PO gabapentin 100 mg capsule albuterol sulfate 90 mcg/actuation HFA aerosol inhaler INHALATION lisinopril 40 mg tablet metformin 500 mg tablet extended release 24 hr PO Eliquis 5 mg tablet Follow-up/Referrals: Abena,PAWAN Wilson [Primary Care Provider] - Time of Disposition: 10:49
--- OUTSIDE RECORDS SUMMARY | 2024-08-29 10:24 | XMS_ITS | Clinical Summary ---
Author Organization [facility] Address [address] [place] [address] Care Team Providers Care Cia Agent Name Role Phone Modesta Kraft Primary Care Provider [phone] Allergies Active Allergy Reactions Criticality Noted Date [...] polyneuropathy, without long-term current use of insulin ([facility] HHS/HCC) TAKE 1 TABLET(1 MG) BY MOUTH EVERY MORNING BEFORE BREAKFAST 90 tablet 3 12/10/19 24 Active gabapentin (NEURONTIN) 100 MG capsuleIndication s:Diabetic peripheral neuropathy ([facility] HHS/HCC) take 2 capsules by [...] s:Moderate episode of recurrent major depressive disorder ([facility]) TAKE 1 CAPSULE(40 MG) BY MOUTH DAILY 90 capsule 1 06/28/20 24 Active ELIQUIS 5 MG tabletIndications :Paroxysmal atrial fibrillation ([facility]) TAKE 1 TABLET(5 MG) BY MOUTH TWICE DAILY 180 tablet 1 07/01/20 24 Active lisinopril (PRINIVIL) 40 MG tabletIndications :Primary hypertension TAKE 1 TABLET(40 MG) BY MOUTH DAILY 90 tablet 3 07/01/20 24 Active metFORMIN ER (GLUCOPHAGE-XR) 500 MG 24 hr tabletIndications :Type 2 diabetes mellitus with diabetic polyneuropathy, without long-term current use of insulin ([facility] HHS/HCC) TAKE 2 TABLETS BY MOUTH EVERY NIGHT 60 tablet 08/09/19 25 Active metFORMIN ER (GLUCOPHAGE-XR) 500 MG 24 hr tabletIndications :Type 2 diabetes mellitus with diabetic polyneuropathy, without long-term current use of insulin ([facility] HHS/HCC) TAKE 2 TABLETS BY MOUTH EVERY NIGHT 60 tablet 07/12/20 24 025 Discontinued benzonatate (TESSALON PERLES) 100 MG capsuleIndication s:Acute cough Take 1 capsule (100 mg total) by mouth 3 (three) times daily as needed for Cough. 20 capsule 08/19/19 25 025 Active Problems Problem Noted Date Diagnosed Date Moderate episode of recurren t major depressive disorder ([facility] HHS/HCC) 08/19/2024 Screening for colon cancer 09/10/2022 Overview (09/10/2022): Added automatically from request for surgery [id number] Hx of colonic polyps 09/10/2022 Overview (09/10/2022): Added automatically from request for surgery [id number] Morbid (severe) obesity due to excess calories ([facility]) 05/02/2022 Postmenopausal 04/09/2021 Primary hypertension 04/05/2021 Mixed hyperlipidemia 04/05/2021 Paroxysmal atrial fibrillation ([facility]) 04/05/2021 Diabetic peripheral neuropathy ([facility]) 04/05/2021 Type 2 diabetes mellitus wit h neurologic complication, without long-term current use of insulin ([facility]) 04/05/2021 Episode of recurrent major depressive disorder 0 04/05/2021 Gastroesophageal reflux disease without esophagi tis 04/05/2021 Obstructive sleep apnea 04/05/2021 Atrial fibrillation ([facility]) Encounters Date Type Department Care Team Description 08/25/2024 9:00 AM NURSE GENERAL DUTY Laboratory Only [facility] Family & Internal Medicine [address] [address] Modesta Kraft APNP 08/25/2024 - 08/25/2024 11:59 PM NURSE GENERAL DUTY Hospital Encounter [facility] [address] [place] [address] Modesta Kraft APPAWAN Discharge Disposition: Home or Self Care (Routine Discharge) 08/25/2024 Travel 08/19/2024 2:20 PM NURSE GENERAL DUTY Office Visit [facility] Family & Internal Medicine [address] [phone] Modesta Kraft APNP Diabetes; Cough (Onset Friday) 08/19/2024 Travel 06/29/2024 11:00 AM NURSE GENERAL DUTY Office Visit [facility] [address] [address] Ben Sumner MD Atrial Fibrillation (annual) 06/29/2024 [...] CDT Gender Identity Female 08/28/2021 11:56 AM NURSE GENERAL DUTY Sexual Orientation Straight 08/28/2021 11 :56 AM NURSE GENERAL DUTY Last Filed Vital Signs Vital Sign Reading Time Taken Comments Blood Pressure 122/68 08/19/2024 2:31 PM NURSE GENERAL DUTY Pulse 66 08/19/2024 2:31 PM NURSE GENERAL DUTY Temperature 36.2 C (97.2 F) 08/19/2024 2:31 PM NURSE GENERAL DUTY Respiratory Rate 16 08/19/2024 2:31 PM NURSE GENERAL DUTY Oxygen Saturation 98% 08/19/2024 2:31 PM NURSE GENERAL DUTY Inhaled Oxygen Concentration - - Weight 113 kg (249 lb 3.2 oz) 08/19/2024 2:31 PM NURSE GENERAL DUTY Height 165.1 cm (5' 5 ) 08/19/2024 2:31 PM NURSE GENERAL DUTY Body Mass Index 41.47 08/19/2024 2:31 PM NURSE GENERAL DUTY Plan of Treatment Upcoming Encounters Date Type Department Care Team (Late st Contact Info) Description 09/23/2024 9:30 AM CDT Appointment [facility] Mammography [address] [place] [address] Modesta Kraft APNP [address] [place] [address] 09/23/2024 10:00 AM CDT Appointment [facility] Diagnostic Imaging [address] [place] [address] Modesta Kraft APNP [address] [place] [address] 02/16/2025 11:00 AM CDT [facility] - [place] [address] [place] [address] Modesta Kraft APNP [address] [place] [address] 06/30/2025 11:00 AM NURSE GENERAL DUTY Office Visit [facility] [facility] [address] [place], [place] [address] Lennie Joyner PA [address] [facility] [address] [place], [place] [address] Health Maintenance Due Date Last Done Comments [...] 01/2023, 05/02/2022, Additional history exists PHQ-2 (Physician [place]) Completed 08/19/2024 Hepatitis C Completed 08/25/2024 Meningococcal [...] VENOUS BLOOD VENIPUNCTURE Routine 08/25/2024 9:00 AM NURSE GENERAL DUTY Mixed hyperlipidemia Type 2 diabetes mellitus with diabetic polyneuropathy, without long-term current use of insulin (CMS/HCC HHS/HCC) Paroxysmal atrial fibrillation (CMS/HCC HHS/HCC) Need for hepatitis C screening test HEPATITIS C ANTIBODY Routine 08/25/2024 9:00 AM NURSE GENERAL DUTY Need for hepatitis C screening test CBC W/DIFF AUTOMATED Routine 08/25/2024 9:00 AM NURSE GENERAL DUTY Paroxysmal atrial fibrillation (CMS/HCC HHS/HCC) LIPID PANEL Routine 08/25/2024 9:00 AM NURSE GENERAL DUTY Mixed hyperlipidemia TSH W/REFLEX Routine 08/25/2024 9:00 AM NURSE GENERAL DUTY Mixed hyperlipidemia URIC ACID BLOOD Routine 08/25/2024 9:00 AM NURSE GENERAL DUTY Type 2 diabetes mellitus with diabetic polyneuropathy, without long-term current use of insulin ([facility]) COMPREHENSIVE METABOLIC PANEL Routine 08/25/2024 9:00 AM NURSE GENERAL DUTY Type 2 diabetes mellitus with diabetic polyneuropathy, without long-term current use of insulin ([facility]) ALBUMIN URINE RANDOM W/CREATININE Routine 08/25/2024 9:00 AM NURSE GENERAL DUTY Type 2 diabetes mellitus with diabetic polyneuropathy, without long-term current use of insulin ([facility]) CK (CPK) Routine 08/25/2024 9:00 AM NURSE GENERAL DUTY Mixed hyperlipidemia COLLECT.CAPILLARY (FNGR,HEEL,EAR) Routine 08/19/2024 2:17 PM NURSE GENERAL DUTY Type 2 diabetes mellitus with diabetic polyneuropathy, without long-term current use of insulin ([facility]) CORONAVIRUS (COVID-19) INFLUENZA A & B ANTIGEN IA PANEL Routine 08/19/2024 Acute cough Intractable headache, unspecified chronicity pattern, unspecified headache type HEMOGLOBIN, GLYCOSYLATED Routine 08/19/2024 Type 2 diabetes mellitus with diabetic polyneuropathy, without long-term current use of insulin ([facility]) ELECTROCARDIOGRAM (NON [place] ACQUIRED) Routine 06/29/2024 11:09 AM NURSE GENERAL DUTY Paroxysmal atrial fibrillation ([facility]) BONE DENSITY/DEXA Routine 04/17/2021 8:3 2 AM CDT Postmenopausal from Last 3 Months or Most Recently Relevant to Health Maintenance Results * TSH W/REFLEX (08/25/2024 9:00 AM NURSE GENERAL DUTY) TSH 1.136 0.358 - 3.740 uIU/ML 08/25/2024 3:58 PM NURSE GENERAL DUTY [facility] 08/25/2024 9:00 AM NURSE GENERAL DUTY us Modesta [facility] Final Resul t Performing Organization Address City/[facility]/ZIP Co de Phone Number [facility] [place] [address] [place] [address], * (ABNORMAL) ALBUMIN URINE RANDOM W/CREATININE (08/25/2024 9:00 AM NURSE GENERAL DUTY) MICROALBUMIN (U) 63.9(H) <20 MG/L 08/25/19 3:25 PM NURSE GENERAL DUTY [facility] CREATININE RANDOM (U) 184.4 MG/DL 08/25/2024 3:25 PM NURSE GENERAL DUTY [facility] ALBUMIN/CREAT RATIO 34.7(H) <30 MG/G 08/25/2024 3:25 PM NURSE GENERAL DUTY [facility] URINE SPECIMEN / Unknown 08/25/2024 9:00 AM NURSE GENERAL DUTY us Modesta GALAVIZ URINE ORDERABLES Final Resu lt Performing Organization Address [facility]/ZIP Co de Phone Number [facility] [place] [address] [place] [address], * (ABNORMAL) COMPREHENSIVE METABOLIC PANEL (08/25/2024 9:00 AM NURSE GENERAL DUTY) SODIUM S/P/B 133(L) 136 - 145 MMOL/L 08/25/2024 3:58 PM NURSE GENERAL DUTY [facility] POTASSIUM S/P/B 5.3(H) 3.5 - 5.1 MMOL/L 08/25/2024 3:58 PM NURSE GENERAL DUTY [facility] CHLORIDE S/P/B 97(L) 98 - 107 MMOL/L 08/25/2024 3:58 PM NURSE GENERAL DUTY [facility] CO2 30.6 21 - 32 MMOL/L 08/25/2024 3:58 PM [facility] GLUCOSE 108(H) 70 - 99 MG/DL 08/25/2024 3:58 PM [facility] BUN 25(H) 7 - 18 MG/DL 08/25/2024 3:58 PM [facility] CREATININE S/P/B 1.07(H) 0.55 - 1.02 MG/DL 08/25/2024 3:58 PM [facility] CALCIUM S/P/B 9.1 8.4 - 10.5 MG/DL 08/25/2024 3:58 PM [facility] BILIRUBIN TOTAL S/P/B 0.4 0.2 - 1.0 MG/DL 08/25/2024 3:58 PM [facility] ALKALINE PHOSPHATASE S/P/B 71 55 - 142 U/L 08/25/2024 3:58 PM [facility] AST 12(L) 15 - 37 U/L 08/25/2024 3:58 PM [facility] ALT 21 14 - 59 U/L 08/25/2024 3:58 PM [facility] TOTAL PROTEIN S/P/B 6.7 6.4 - 8.2 G/DL 08/25/2024 3:58 PM [facility] ALBUMIN S/P/B 3.8 3.4 - 5.0 G/DL 08/25/2024 3:58 PM [facility] ANION GAP 5.4 5 - 15 MMOL/L 08/25/2024 3:58 PM [facility] Comment:REFERENCE RANGE NOT ESTABLISHED OSMOLALITY (CALC) 281 MOSM/KG 025 3:58 PM [facility] Comment:REFERENCE RANGE NOT ESTABLISHED GFR ESTIMATE 54(L) >90 ML/MIN/1. 73 M2 08/25/2024 3:58 PM [facility] GFR NOTES GFR REFERENCE S: 08/25/2024 3:58 PM NURSE GENERAL DUTY [facility] Comment: THE ESTIMATED GFR IS CALCULATED USING [...] FAILURE: <15 ml/min/1.73 m2 08/25/2024 9:00 AM NURSE GENERAL DUTY us Modesta [facility] Final Resul t [facility] [address] [place] [address], * (ABNORMAL) LIPID PANEL (08/25/2024 9:00 AM NURSE GENERAL DUTY) CHOLESTEROL 149 <200 MG/DL 08/25/2024 3:58 PM [facility] TRIGLYCERIDES 159(H) <150 MG/DL 08/25/2024 3:58 PM [facility] HDL 54 >40 MG/DL 08/25/2024 3:58 PM [facility] LDL-C 63 <100 MG/DL 08/25/2024 3:58 PM [facility] VLDL CALCULATION 32(H) 5 - 28 MG/DL 08/25/2024 3:58 PM [facility] CHOL/HDL RATIO 2.8 0.0 - 4.0 08/25/2024 3:58 PM [facility] LDL/HDL 1.2 0.41 - 2.13 08/25/2024 3:58 PM NURSE GENERAL DUTY [facility] NON HDL CHOLESTEROL 95 <140 MG/DL 08/25/2024 3:58 PM NURSE GENERAL DUTY [facility] 08/25/2024 9:00 AM NURSE GENERAL DUTY [facility] Final Resul t Performing Organization Address City/[facility]/ZIP Co de Phone Number [facility] [address] [place] [address], [place] [phone] * HEPATITIS C AB ([facility]) (08/25/2024 9:00 AM NURSE GENERAL DUTY) Pathologist [facility] HEPATITIS C AB NON-REACTI VE NON-REACT [place] 08/25/2024 10:06 PM NURSE GENERAL DUTY [facility] Comment: ANTIBODIES TO HCV NOT DETECTED. DOES NOT EXCLUDE THE POSSIBILITY OF EXPOSURE TO HCV. 08/25/2024 9:00 AM NURSE GENERAL DUTY [facility] Final Resul t Performing Organization Address City/[facility] Co de Phone Number [facility] [address] [place] [address], [place] [phone] * (ABNORMAL) CBC W/DIFF AUTOMATED (08/25/2024 9:00 AM NURSE GENERAL DUTY) Pathologist [facility] WBC 9.91 4.00 - 10.80 x10'3/uL 08/25/2024 3:03 PM NURSE GENERAL DUTY [facility] RBC 4.24 4.10 - 5.40 x10'6/uL 08/25/2024 3:03 PM NURSE GENERAL DUTY [facility] HGB 12.7 12.0 - 16.0 G/DL 08/25/2024 3:03 PM NURSE GENERAL DUTY [facility] HCT 38.7 36.0 - 47.0 % 08/25/2024 3:03 PM [facility] MCV 91.3 78.0 - 100.0 FL 08/25/2024 3:03 PM [facility] MCH 30.0 27.0 - 31.0 PG 08/25/2024 3:03 PM [facility] MCHC 32.8(L) 33.0 - 36.0 G/DL 08/25/2024 3:03 PM [facility] RDW 12.2 11.5 - 14.5 % 08/25/2024 3:03 PM [facility] PLT 292 150 - 350 x10'3/uL 08/25/2024 3:03 PM [facility] MPV 10.0 7.4 - 10.4 FL 08/25/2024 3:03 PM [facility] DIFFERENTIAL TYPE AUTOMATED DIFFERENTIAL 08/25/2024 3:03 PM [facility] NEUTROPHILS % 74.4 % 08/25/2024 3:03 PM [facility] LYMPHOCYTES % 17.6 % 08/25/2024 3:03 PM [facility] MONOCYTES % 5.0 % 08/25/2024 3:03 PM [facility] EOSINOPHILS % 2.7 % 08/25/2024 3:03 PM [facility] BASOPHILS % 0.1 % 08/25/2024 3:03 PM [facility] IMMATURE GRANS % 0.2 % 08/25/2024 3:03 PM [facility] ABS. NEUTROPHILS 7.37 1.60 - 8.30 x10'3/uL 08/25/2024 3:03 PM [facility] ABS. LYMPHOCYTES 1.74 0.80 - 4.70 x10'3/uL 08/25/2024 3:03 PM [facility] ABS. MONOCYTES 0.50 0.00 - 1.50 x10'3/uL 08/25/2024 3:03 PM NURSE GENERAL DUTY [facility] ABS. EOSINOPHILS 0.27 0.00 - 0.40 x10'3/uL 08/25/2024 3:03 PM NURSE GENERAL DUTY [facility] ABS. BASOPHILS 0.01 0.00 - 0.20 x10'3/uL 08/25/2024 3:03 PM NURSE GENERAL DUTY [facility] ABS. IMMATURE GRANULOCYTES 0.02 0.00 - 0.03 x10'3/uL 08/25/2024 3:03 PM NURSE GENERAL DUTY [facility] 08/25/2024 9:00 AM NURSE GENERAL DUTY [facility] Final Resul t Performing Organization Address City/[facility]/ZIP Co de Phone Number [facility] [address] [place] [address], * CK (CPK) (08/25/2024 9:00 AM NURSE GENERAL DUTY) CPK 53 26 - 192 U/L 08/25/2024 5:45 PM NURSE GENERAL DUTY [facility] 08/25/2024 9:00 AM NURSE GENERAL DUTY [facility] Final Resul t [facility] [address] [place] [address], [place] [phone] * URIC ACID BLOOD (08/25/2024 9:00 AM NURSE GENERAL DUTY) URIC ACID 6.0 2.6 - 6.0 MG/DL 08/25/2024 5:06 PM NURSE GENERAL DUTY [facility] 08/25/2024 9:00 AM NURSE GENERAL DUTY Mod[facility] Final Resul t Performing Organization Address City/[facility] Co de Phone Number [facility] [address] [place] [address], * CORONAVIRUS (COVID-19) INFLUENZA A & B ANTIGEN IA PANEL (08/19/2024) CORONAVIRUS ANTIGEN IA NEGATIVE NEGATIVE [facility] INFLUENZA A NEGATIVE NEGATIVE [facility] INFLUENZA B NEGATIVE NEGATIVE [facility] Internal Control: VALID VALID [facility] NASAL STRUCTURE / Unknown 08/19/2024 Modesta GALAVIZ [facility]CROBIOLOGY [facility] Final Result Performing Organization Address [facility] [place] [address], [place] * HEMOGLOBIN, GLYCOSYLATED (08/19/2024) HGB A1C 6.4 % [facility] 08/19/2024 Modesta [facility] Final Resul t Performing Organization Address [facility] Co de Phone Number [address] [address], [place] * ELECTROCARDIOGRAM (06/29/2024 11:09 AM NURSE GENERAL DUTY) 06/29/2024 11:0 9 AM NURSE GENERAL DUTY Narrative [facility] - 07/02/2024 11:51 PM NURSE GENERAL DUTY [facility] Test Date: 2024-06-29 Pat Name: VERONICA MAHMOOD Department: 112 Room: Gender: Female Home Care Specialist: : 1950 Requested By: BEN SUMNER Order Number: [id number] Reading MD: Ben Sumner Measurements Intervals [place] Rate: 63 P: 90 [place]: 215 QRS: 28 QRSD: 93 T: 53 QT: 404 QTc: 415 Interpretive Statements 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 E GENERAL DUTY Procedure Note Ben Sumner MD - 07/02/2024 [facility] Test Date: 2024-06-29 Pat Name: VERONICA MAHMOOD Department: 112 Room: Gender: Female Home Care Specialist: : 1950 Requested By: BEN SUMNER Order Number: [id number] Reading MD: Ben Sumner Measurements Intervals [place] Rate: 63 P: 90 [place]: 215 QRS: 28 QRSD: 93 T: 53 QT: 404 QTc: 415 Interpretive Statements 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 E GENERAL DUTY us Ben Sumner MD PROCEDURES-ORDERABLE NO JULI [...] of bone density was performed utilizing the HoloImpression Technologiesbone densitometer. The results of the study are [...] Recently Relevant to Health Maintenance Insurance MEDICARE [facility] Care Teams Cia Agent Relationship Specialty Start Date End Date Modesta Kraft APNP [facility] [place] [address] PCP - General NURSE PRACTITIONER 04/05/21
== END 2024-08-29 10:54 | disposition home or self-care (01) ==
PROVIDERS: Emergency Provider Nurse Practitioner Family; PCP Registered Nurse
DX: J40 Bronchitis, not specified as acute or chronic (principal); J06.9 Acute upper respiratory infection, unspecified; I48.91 Unspecified atrial fibrillation; I10 Essential (primary) hypertension
CPT/HCPCS: 71046; 99213; G0463